=== PATIENT | male | born 1970 | race Caucasian/White ===

== ENCOUNTER 2023-05-22 12:00 | Inpatient (IN) | payer BC ==
[~2023-05-22] VITALS: Ht 182.9 cm; Wt 70.0 kg
[2023-06-02] MEDS ORDERED: MULT-1085 PO (14:54)
[2023-06-02 15:13] LABS: BASOPHILS # (AUTO) 0.1 X10'3 (0-0.2); BASOPHILS % (AUTO) 0.5 % (0-1); EOSINOPHILS # (AUTO) 0.3 X10'3 (0-0.9); EOSINOPHILS % (AUTO) 2.8 % (0-6); LYMPHOCYTES # (AUTO) 1.7 X10'3 (1.1-4.8); LYMPHOCYTES % (AUTO) 15.3 % (21-51); MEAN CORPUSCULAR HEMOGLOBIN 31.8 PG (27.0-31.0); MEAN CORPUSCULAR HGB CONC 34.2 g/dL (33.0-36.5); MEAN CORPUSCULAR VOLUME 92.9 FL (78-98); MEAN PLATELET VOLUME 6.5 FL (7.4-10.4); MONOCYTES # (AUTO) 0.8 X10'3 (0-0.9); NEUTROPHILS % (AUTO) 74.4 % (42-75); PRE OP HEMATOCRIT 46.9 % (42.0-52.0); PRE OP HEMOGLOBIN 16.1 g/dL (14.0-17.9); PRE OP PLATELET COUNT 308 X10'3 (140-440); RED BLOOD COUNT 5.05 X10'6 (4.70-6.10); RED CELL DISTRIBUTION WIDTH 13.9 % (11.5-14.5)
[2023-06-02 15:25] LABS: ALBUMIN 3.5 G/DL (3.4-5.0); ALKALINE PHOSPHATASE 63 IU/L (46-116); BLOOD UREA NITROGEN 12 MG/DL (7-18); BUN/CREATININE RATIO 14.5 (10.0-20.0); CALCIUM 9.1 MG/DL (8.5-10.1); CHLORIDE 105 MMOL/L (99-107); CREATININE 0.83 MG/DL (0.60-1.10); PRE OP ALT 35 U/L (30-65); PRE OP ANION GAP 6 (8-16); PRE OP AST 25 U/L (10-37); PRE OP BILIRUB, TOTAL 0.2 MG/DL (0.0-1.0); PRE OP GLUCOSE 110 MG/DL (70-104); PRE OP POTASSIUM 3.7 MMOL/L (3.4-5.1); PRE OP SODIUM 142 MMOL/L (135-145); TOTAL CARBON DIOXIDE 31.3 MMOL/L (24-32); eGFR > 90 ML/MIN
[2023-06-07] VITALS (29 sets, daily range): BP systolic 103–150; BP diastolic 73–95; PULSE 59–99; RESP 10–18; TEMP 97.5–98.5; O2SAT 92–100
[2023-06-07] MEDS ORDERED: ringers solution, lacted 1,000 ML IV SCH ×2 (05:00→09:55)
[2023-06-07] MEDS ORDERED: albuterol 2.5 MG/3 ML nebule NEB ONE (05:30)
[2023-06-07] MEDS ORDERED: MALTODEXTRIN/FRUCTOSE 0.68 KCAL/ML LIQUID 296ML BOTTLE PO ONE (05:30)
[2023-06-07] MEDS ORDERED: metroNIDAZOLE-Flagyl 500mg/NS 100ML IVPB IV ONE (05:30)
[2023-06-07] MEDS ORDERED: heparin, porcine 5000 units/ml vial SQ ONE (05:30)
[2023-06-07] MEDS ORDERED: famotidine 20mg tablet PO ONE (05:30)
[2023-06-07] MEDS ORDERED: ceFOXitin 2GM-NS 100mL ADDvant 100 ML IV ONE (05:30)
[2023-06-07] MEDS ORDERED: tobramycin 40mg/ml inj ONE (07:58)
[2023-06-07] MEDS ORDERED: BUPIVAcaine/PF 2.5 mg/ml (0.25%) 30ml vial ONE (07:58)
[2023-06-07] MEDS ORDERED: LIDOcaine 1% W/epiNEPHrine 1:100,000 20ml vial ONE (07:58)
--- NOTE | 2023-06-07 08:52 | NUR ---
UNABLE TO SCAN HEPARIN MEDICATION. MEDICATION AND DOSAGE VERIFIED WITH CANDI RN PRIOR TO ADMINISTRATION.
[2023-06-07] MEDS ORDERED: morphine 4 MG/ML inj SYRINge IV PRN (09:55)
[2023-06-07] MEDS ORDERED: morphine 2 MG/ML inj. syringe IV PRN (09:55)
[2023-06-07] MEDS ORDERED: acetaminophen 1,000mg/100ml IV 100 ML IV PRN (09:55)
[2023-06-07] MEDS ORDERED: meperidine/PF 25mg/ml syringe IV PRN ×3 (09:55)
[2023-06-07] MEDS ORDERED: ketorolac trometh. 30mg/ml inj. IV ONE (09:55)
[2023-06-07] MEDS ORDERED: proCHLORperazine 10 MG/2 ml inj IV PRN (09:55)
[2023-06-07] MEDS ORDERED: labetalol 20mg/4ml (5mg/ml) syringe IV PRN (09:55)
[2023-06-07] MEDS ORDERED: hydrALAZINE 20mg/ml inj. IV PRN (09:55)
[2023-06-07] MEDS ORDERED: ondansetron/PF 4mg/2ml inj IV PRN ×2 (09:55→13:00)
[2023-06-07] MEDS ORDERED: sevoflurane 250ml liquid IH ONE (10:30)
[2023-06-07] MEDS ORDERED: midazolam 1 mg/ML 2ml injection ONE (10:35)
[2023-06-07] MEDS ORDERED: fentaNYL /PF 50mcg/ml 5ml ampule ONE (10:35)
[2023-06-07] MEDS ORDERED: LIDOcaine 2% (20mg/ml) 5ml vial ONE (11:17)
[2023-06-07] MEDS ORDERED: rocuronium 10mg/ml inj IV ONE (11:17)
[2023-06-07] MEDS ORDERED: propofol inj 20 ML IV ONE (11:17)
[2023-06-07] MEDS ORDERED: dexamethasone sod phosphate 4mg/ml inj. ONE (11:17)
[2023-06-07] MEDS ORDERED: ondansetron/PF 4mg/2ml inj ONE (11:17)
[2023-06-07] MEDS ORDERED: glycopyrrolate 0.2mg/ml inj ONE (12:35)
[2023-06-07] MEDS ORDERED: neostigmine methylsulfate 1 MG/ML 10ml vial ONE (12:35)
--- NOTE | 2023-06-07 12:44 | NUR ---
Received from OR via HOSPITAL BED TO RR 6 , accompanied by Anesthesiologist DR ORTIZ and report given by Anesthesiolgist. PT PRESENTS WITH 20G LEFT WRIST, ABD DRESSING CDI, SPO2 6L MASK 99%, LR RUNNING AT 100MLS/HR, VSS. Addendum: 06/07/23 at 1306 by Elisha Richards RN, RN Amended: Links added.
[2023-06-07] MEDS ORDERED: normal saline 1000ml 1,000 ML IV SCH (13:00)
[2023-06-07] MEDS ORDERED: naloxone 0.4 mg/ml inj IV PRN (13:00)
[2023-06-07] MEDS: HYDROmorph/NS 0.2 mg/ml PCA 100 ML IV SCH ×6 (13:44→23:00)
--- NOTE | 2023-06-07 14:35 | NUR ---
PT SITTING UP ON BED EATING ICE CHIPS.
--- NOTE | 2023-06-07 15:24 | NUR ---
Report called to receiving nurs BENJAMIN. Transferred via HOSPITAL BED TO ROOM 4011B. BED IN LOW LOKCED POSITION WITH CALL LIGHT IN REACH. PT HOOKED UPO TO BEDSIDE VITALS MACHINE BY TECH. CHART TAKEN TO NURSES STATION. TWO PT Belongings BAGS TO ROOM WITH PT, GLASSES AND CELL PHONE. Special Issues communicated to receiving nurse. Addendum: 06/07/23 at 1550 by Elisha Richards RN RN Amended: Links added.
[2023-06-07] MEDS ORDERED: LORazepam 1 MG tablet PO PRN (16:40)
[2023-06-07] MEDS ORDERED: haloperidol lactate 5mg/ml inj IM PRN (16:40)
[2023-06-07] MEDS ORDERED: LORazepam 2 mg/ml vial IV PRN (16:40)
[2023-06-07] MEDS ORDERED: haloperidol 5mg tablet PO PRN (16:40)
[2023-06-07] MEDS: nicotine 14mg patch - 24hr TD SCH (16:50)
[2023-06-07] MEDS: potassium CL 20mEq in D5-1/2NS 1,000 ML IV SCH (17:12)
[2023-06-07] MEDS: metroNIDAZOLE-Flagyl 500mg/NS 100 ML IV SCH ×2 (17:15→23:51)
--- NOTE | 2023-06-07 18:30 | NUR ---
Patient in room ORTH[facility] 4011. I have received report from Donita BOCANEGRA and had the opportunity to ask questions and assume patient care.
--- NOTE | 2023-06-07 19:00 | NUR ---
I entered pt's room to hang mefoxin, Pt was very agitated and concerned about his safety and risk for infection since he felt the antibiotic was late. Pt was educated that it wasn't late. He continued to be very concerned that it was going to hurt him with much reassurance he finally calmed and I was able to hang the antibiotic. I also attempted to include him in the plan of care and this seemed to make him very anxious
[2023-06-07] MEDS: ceFOXitin inj 1,000 MG in normal saline 100ml IV soln 100 ML IV SCH (19:12)
[2023-06-07] MEDS: heparin, porcine 5000 units/ml vial SQ SCH (20:03)
[2023-06-07] MEDS: docusate sod 100mg capsule PO SCH (20:04)
--- NOTE | 2023-06-08 | NUR ---
went into pts room to hang raquel, educated him that raquel was not tested with dilaudid. I offered the pt options to mitigate this. The pt stood from the chair in a defensive stance stating" This is very scary and you are giving me to many options. You should just make the decision and do whats right. Since you have to research this I don't feel safe and I want a second opinion" I left the room and had Zoe BOCANEGRA accompany me into the room. She reassured the pt that the options I offered were safe and I had researched them.At this point the pt stated " That he didn't feel safe and wanted Zoe to accompany me into the room" The pt was apologized to and raquel was hung by Zoe BOCANEGRA. After this he ambulated with Darshana HERRERA in the halls and stated" I don't even remember what the fuss was about"
--- NOTE | 2023-06-08 00:05 | NUR ---
pt standing at bedside, in aggressive stance, loud voice, agitated - pt frustrated at Enma, RN "for making me afraid and giving me too many options. I don't feel safe." pt upset about dilaudid and antibiotics not being able to be given at the same time. "and she's not helping with giving me too many options. she should just know and do what's best for me. I have a family to go home to." I was able to listen to patient complaints and reassure that Enma had researched the medications and was giving him correct options. "I just want her to have someone like you with her whenever she comes in this room. I don't want to be practiced on." I hung patient's abx and explained cadd would be back on in 1 hour. if painful before then we can always flush the IV and administer the dilaudid. pt able to understand, but visibly shaking in anger and frustration. charger Annmarie also talked with patient, but no better results. plan to accompany Enma with any activity with the patient for the rest of the shift. also noted that Dr. Gonzalez had ordered ativan and offered that to the patient due to his history of ETOH use. pt refused.
--- NOTE | 2023-06-08 00:30 | NUR ---
pt ambulated halls with JAVIER Gilliland. stated "I don't even remember what all that was about anyway." back to room and laying in bed. after 2 laps.
[2023-06-08] MEDS: HYDROmorph/NS 0.2 mg/ml PCA 100 ML IV SCH ×9 (01:00→17:00)
--- NOTE | 2023-06-08 01:30 | NUR ---
norman re-attached. pt resting in bed. educated that cadd was usable again. pt pushed button. Accompanied Enma into room for cadd settings. offered patient ativan again - pt declined ativan again "I think I've worked myself up so much I'm ready to crash."
[2023-06-08 01:34] VITALS: BP 121/80; PULSE 67; RESP 15; TEMP 98.9; O2SAT 98
[2023-06-08] MEDS: ceFOXitin inj 1,000 MG in normal saline 100ml IV soln 100 ML IV SCH (02:40)
[2023-06-08] MEDS: potassium CL 20mEq in D5-1/2NS 1,000 ML IV SCH ×2 (03:20→12:07)
[2023-06-08 06:00] VITALS: BP 115/74; PULSE 63; RESP 14; TEMP 99; O2SAT 97
[2023-06-08 06:57] LABS: BASOPHILS % (AUTO) 0.2 % (0-1); EOSINOPHILS % (AUTO) 0.3 % (0-6); HEMATOCRIT 43.2 % (42.0-52.0); HEMOGLOBIN 14.3 g/dl (14.0-17.9); LYMPHOCYTES # (AUTO) 2.1 X10'3 (1.1-4.8); LYMPHOCYTES % (AUTO) 15.4 % (21-51); MEAN CORPUSCULAR HEMOGLOBIN 31.1 PG (27.0-31.0); MEAN CORPUSCULAR HGB CONC 33.2 g/dL (33.0-36.5); MEAN CORPUSCULAR VOLUME 93.7 FL (78-98); MEAN PLATELET VOLUME 6.8 FL (7.4-10.4); MONOCYTES # (AUTO) 1.2 X10'3 (0-0.9); MONOCYTES % (AUTO) 9.3 % (2-12); NEUTROPHILS # (AUTO) 10.1 X10'3 (1.8-7.7); NEUTROPHILS % (AUTO) 74.8 % (42-75); PLATELET COUNT 296 X10'3 (140-440); RED BLOOD COUNT 4.61 X10'6 (4.70-6.10); RED CELL DISTRIBUTION WIDTH 13.4 % (11.5-14.5); WHITE BLOOD COUNT 13.5 X10'3 (4.5-11.0)
[2023-06-08 07:01] LABS: ALANINE AMINOTRANSFERASE 32 U/L (12-78); ALBUMIN 2.8 G/DL (3.4-5.0); ALBUMIN/GLOBULIN RATIO 0.9 (1.1-1.5); ALKALINE PHOSPHATASE 42 IU/L (46-116); ANION GAP 8 (8-16); ASPARTATE AMINO TRANSFERASE 21 U/L (10-37); BILIRUBIN,TOTAL 0.4 MG/DL (0.1-1.0); BLOOD UREA NITROGEN 6 MG/DL (7-18); CALCIUM 7.9 MG/DL (8.5-10.1); CHLORIDE 107 MMOL/L (99-107); CREATININE 0.75 MG/DL (0.60-1.10); GLUCOSE 123 MG/DL (70-104); PHOSPHORUS 3.4 MG/DL (2.3-4.5); POTASSIUM 3.9 MMOL/L (3.5-5.1); SODIUM 141 MMOL/L (135-145); TOTAL CARBON DIOXIDE 26.3 MMOL/L (24-32); TOTAL PROTEIN 5.9 G/DL (6.4-8.2); eGFR > 90 ML/MIN
[2023-06-08] MEDS: metroNIDAZOLE-Flagyl 500mg/NS 100 ML IV SCH ×2 (07:27→15:27)
[2023-06-08] MEDS: docusate sod 100mg capsule PO SCH (07:27)
[2023-06-08] MEDS: heparin, porcine 5000 units/ml vial SQ SCH (07:28)
[2023-06-08] MEDS: nicotine 14mg patch - 24hr TD SCH (07:29)
[2023-06-08] MEDS ORDERED: multivitamins, therapeutics tablet PO SCH ×2 (08:00)
[2023-06-08 10:21] VITALS: BP 131/56; PULSE 65; RESP 16; TEMP 97.7; O2SAT 99
[2023-06-08 17:00] VITALS: RESP 18
[2023-06-08] MEDS ORDERED: DOCU100C40 PO (17:04)
[2023-06-08] MEDS ORDERED: PCA WASTE DOCUMENTATION 1 MG ML MC SCH (17:15)
[2023-06-08] MEDS ORDERED: acetaminophen 325mg tablet PO STA (17:49)
--- NOTE | 2023-06-08 18:42 | NUR ---
pt. discharged home
[2023-06-12] MEDS ORDERED: thiamine 100mg tablet PO SCH (08:00)
[2023-06-12] MEDS ORDERED: folic acid 1mg tablet PO SCH (08:00)
== END 2023-06-08 18:39 | disposition home or self-care (01) | DRG 331 ==
LOC: PAS IN 06-07 07:44 → ORTHO 4S 06-07 15:20
PROVIDERS: ADMIT Colon & Rectal Surgery; ATTEND Colon & Rectal Surgery
PROC: 0DB80ZZ Excision of Small Intestine, Open Approach (ICD-10-PCS; 2023-06-07)
PROC: 0DBB0ZZ Excision of Ileum, Open Approach (ICD-10-PCS; 2023-06-07)
PROC: 0WQF0ZZ Repair Abdominal Wall, Open Approach (ICD-10-PCS; principal; 2023-06-07 10:30)
DX: Z43.2 Encounter for attention to ileostomy (principal); K43.5 Parastomal hernia without obstruction or gangrene; Z79.899 Other long term (current) drug therapy
CPT/HCPCS: Z7506; Z7508; 36415; 80053; 82948; 83735; 84100; 85025; 86885; 86900; 86901; 87081; 93005; 97161; 97530; 97535; A4618; A6449; A7000; C1758; G0378; J0694; J1100; J1170; J1644; J2250; J2405; J2704; J2710; J3010; J3260; J3480; J3490; J7030; J7120